=== PATIENT | female | born 1955 | race Caucasian/White ===

== ENCOUNTER 2017-02-21 07:30 | Emergency (ER) | payer BC ==
[2017-02-21 07:41] VITALS: BMI 31.1
--- NOTE | 2017-02-21 07:44 | PDOC ---
Attending Attestation - Resident Resident Name: Salvador Gore - ED Attending Attestation I have performed the following: I have examined & evaluated the patient, The case was reviewed & discussed with the resident, I agree w/resident's findings & plan, Exceptions are as noted - HPI HPI: 02/21/17 08:33 62yo female with sensation that steak was caught in her throat since last night. States inability to tolerate PO intake since. Speaking in full sentences. Pt with inability to tolerate secretions - spitting up during exam. - Physicial Exam PE: 02/21/17 08:34 gen: aaox3, spitting up secretions heart: +s1s2 reg Lungs: cta b/l Abd: soft, nt/nd +bs Ext: no c/c/e, FROM of all extremities - Medical Decision Making 02/21/17 07:44 I, Dr. Lu Olguin, DO, attest that this document has been prepared under my direction and personally reviewed by me in its entirety. I further attest, that it accurately reflects all work, treatment, procedures and medical decision -making performed by me. 02/21/17 08:32 a/p: 62yo female with foreign body sensation to chest -ekg -cxr -glucagon -zofran -ivf hydration -reassess 02/21/17 08:37 re-eval:pt feeling better. tolerating secretions. sensation of foreign body has dissipated. will continue to monitor. 02/21/17 09:23 pt tolerating po challenge 02/21/17 10:38 reviewed ekg from office, new t wave inversions v3-5, will send labs 02/21/17 10:[address] Sloan - if labs normal, ok to follow up as an outpt 02/21/17 10:59 discussed labs with the patient. Stable for d/c to home. mildly elevated bg. will follow up with pMD and with Dr. Sloan for furhte reval. Answered all quesitons. Pt understands all reasons to return to the ED and need for follow up. Discharge Disposition - Diagnosis Foreign body in esophagus Qualifiers: Encounter type: initial encounter Qualified Code(s): T18.108A - Unspecified foreign body in esophagus causing other injury, initial encounter - Discharge Dispostion Disposition: HOME Condition at time of disposition: Stable Last Admission D/C Date: 04/06/08 Admit: No - Referrals Referrals: Edenilson White MD [Primary Care Provider] - Chang Sloan MD [Staff Physician] - - Patient Instructions Printed Discharge Instructions: DI for Esophageal Dysphagia Additional Instructions: Please follow up with your PMD and with the adjunct faculty instructor. Please also call your GI specialist for follow up. Please return to the ED with any further concerns. Heart Score/ECG Review - ECG Intrepretation Comment:: 02/21/17 10:30 ekg: sinus miguelangel at 59, nl acxis, nl interval, t wave ivnersions v3-v5 which are new compared to old
[2017-02-21] MEDS ORDERED: ONDANSETRON 4 MG/2 ML VIAL IVPUSH ONE (07:53)
[2017-02-21] MEDS ORDERED: GlUCAGON HUMAN RECOMBINANT 1 MG/VIAL IVPUSH ONE (07:53)
[2017-02-21] MEDS ORDERED: SODIUM CHLORIDE 0.9% 1000 ML INFUS.BAG IV ONE (07:53)
[2017-02-21] MEDS ORDERED: GlUCAGON HUMAN RECOMBINANT 1 MG/VIAL ONE (07:59)
[2017-02-21] MEDS ORDERED: ONDANSETRON 4 MG/2 ML VIAL ONE (07:59)
--- NOTE | 2017-02-21 08:18 | PDOC ---
History of Present Illness <Farrah Curry - Last Filed: 02/21/17 10:38> - General History Source: Patient Exam Limitations: No Limitations - History of Present Illness Initial Comments: 02/21/17 08:13 Patient is a 62F with a PMH of eosinophilic esophagitis, HTN, HLD, who presents to the ED with complaints of fullness in her chest. The patient states that she was having steak last night at 8pm and after having one bite, felt the food get stuck in her throat. This has happened to her in the past but the symptoms usually last 1 hour. This is secondary to her eosinophilic esophagitis. She has not been able to swallow her saliva or medications. GI dr: Kiko; PCP: Pablo somers Soc: does not smoke, drink, use drugs All: none <Salvador Gore - Last Filed: 02/21/17 11:04> - General Chief Complaint: Foreign Body (FB) Stated Complaint: FOREIGN BODY IN THROAT Time Seen by Provider: 02/21/17 07:37 Past History <Fararh Curry - Last Filed: 02/21/17 10:38> - Past Medical History Anemia: No Asthma: No Cancer: No Cardiac Disorders: No CVA: No COPD: No CHF: No Dementia: No Diabetes: No GI Disorders: Yes (H/O EOSINOPHLIC ESOPHAGITIS, POLYPS, DIVERTICULOSIS) Disorders: No HTN: Yes Hypercholesterolemia: Yes Liver Disease: No Seizures: No Thyroid Disease: No - Surgical History Abdominal Surgery: No Appendectomy: No Cardiac Surgery: No Cholecystectomy: No Lung Surgery: No Neurologic Surgery: No Orthopedic Surgery: No - Psycho/Social/Smoking Cessation Hx Suicidal Ideation: No Smoking Status: No Smoking History: Never smoked Have you smoked in the past 12 months: No Number of Cigarettes Smoked Daily: 0 Information on smoking cessation initiated: No Hx Alcohol Use: No Drug/Substance Use Hx: No Substance Use Type: None Hx Substance Use Treatment: No <Salvador Gore - Last Filed: 02/21/17 11:04> - Past Medical History Allergies/Adverse Reactions: Allergies Allergy/AdvReac Type Severity Reaction Status Date / Time No Known Allergies Allergy Verified 12/12/11 12:32 Home Medications: Ambulatory Orders Atorvastatin Ca [Lipitor] 10 mg PO HS 03/28/16 Ramipril [Altace] 10 mg PO DAILY 03/28/16 Ranitidine [Zantac -] 150 mg PO BID 03/28/16 Mag Carb/Al Hydrox/Alginic AC [Gaviscon Liquid] 355 ml PO PRN #0 oral.susp 03/29 Metoprolol Succinate [Toprol Xl -] 25 mg PO HS 02/21/17 Review of Systems - Review of Systems Able to Perform ROS?: Yes Is the patient limited Surinamese proficient: No Constitutional: No: Chills, Fever Respiratory: Yes: Cough (2/2 eosinophilic esophagitis). No: Shortness of Breath Cardiac (ROS): No: Chest Pain ABD/GI: No: Constipated, Diarrhea, Nausea, Vomiting, Indigestion, Abdominal cramping Integumentary: No: Flushing, Sweating Neurological: No: Numbness, Tingling, Weakness <Salvador Gore - Last Filed: 02/21/17 11:04> *Physical Exam - Vital Signs Last Vital Signs Temp Pulse Resp BP Pulse Ox 98.6 F 68 16 142/76 99 02/21/17 09:42 02/21/17 09:42 02/21/17 09:42 02/21/17 09:42 02/21/17 09:42 <Farrah Curry - Last Filed: 02/21/17 10:38> - Vital Signs Last Vital Signs Temp Pulse Resp BP Pulse Ox 98.2 F 77 16 161/85 100 02/21/17 07:38 02/21/17 07:38 02/21/17 07:38 02/21/17 07:38 02/21/17 07:38 - Physical Exam General Appearance: Yes: Nourished, Appropriately Dressed. No: Apparent Distress HEENT: positive: Normal Voice, Other (No foreign object visualized in posterior pharnyx) Neck: negative: Tender Respiratory/Chest: positive: Lungs Clear, Normal Breath Sounds. negative: Chest Tender, Respiratory Distress, Crackles, Rales, Rhonchi, Stridor Cardiovascular: positive: Regular Rhythm, Regular Rate, S1, S2. negative: Diastolic Murmur, Systolic Murmur Gastrointestinal/Abdominal: positive: Flat, Soft. negative: Tender, Distended, Guarding, Rebound, Tenderness Extremity: positive: Normal Inspection, Normal Range of Motion. negative: Coldness, Swelling, Calf Tenderness Integumentary: positive: Dry, Warm. negative: Clammy Neurologic: positive: Fully Oriented, Alert, Normal Mood/Affect, Motor Strength 5/5 <Salvador Gore - Last Filed: 02/21/17 11:04> Heart Score/ECG Review - ECG Impressions Comment:: 02/21/17 09:45 NSR with T wave inversion in V1-V5. Will compare to previous EKG. <Salvador Gore - Last Filed: 02/21/17 11:04> ED Treatment Course - LABORATORY CBC & Chemistry Diagram: 02/21/17 10:20 02/21/17 10:20 - Medications Given in the ED: ED Medications Discontinued Medications Generic Name Dose Route Start Last Admin Trade Name Rick PRN Reason Stop Dose Admin Glucagon 0.5 mg 02/21/17 07:53 02/21/17 08:20 Glucagon - IVPUSH 02/21/17 07:54 0.5 mg ONCE ONE Administration Ondansetron HCl 4 mg 02/21/17 07:53 02/21/17 08:21 Zofran Injection IVPUSH 02/21/17 07:54 4 mg ONCE ONE Administration Sodium Chloride 1,000 ml 02/21/17 07:53 02/21/17 08:20 Normal Saline - IV 02/21/17 07:54 1,000 ml ONCE ONE Administration <Farrah Curry - Last Filed: 02/21/17 10:38> - LABORATORY CBC & Chemistry Diagram: 02/21/17 10:20 02/21/17 10:20 - RADIOLOGY Radiology Studies Ordered: Category Date Time Status CHEST PA & LAT [RAD] Stat Radiology 02/21/17 07:52 Ordered <Salvador Gore - Last Filed: 02/21/17 11:04> Medical Decision Making - Medical Decision Making 02/21/17 09:43 Dr. Beatty was paged at 8:09am and 9:42am with no response. Dr. White's office was called at 9:38am and old EKG will be faxed over. 02/21/17 10:21 Dr. Carter was called for consult, and will call us back. 02/21/17 10:38 Dr. Sloan called back at 10:36am. <Farrah Curry - Last Filed: 02/21/17 10:38> - Medical Decision Making 02/21/17 08:17 The patient is a 62F with a PMH of eosinphilic esophagitis who presents with a feeling of food being stuck in her esophagus. Also on my differential, although very unlikely and low suspicion, is an atypical presentation of ACS. I have ordered an EKG to rule this out. I have also ordered glucagon to relax the LES with zofran and fluids. Will reassess after medications are given. 02/21/17 09:46 Patient states that she is feeling "100% better". EKG shows t-wave inversions. PCP office called to fax old EKG and will compare. 02/21/17 11:04 My attending has spoken with Dr. Sloan who agrees to follow up with this patient outpatient. Patient agrees to this and is ready for discharge. <Salvador Gore - Last Filed: 02/21/17 11:04> *DC/Admit/Observation/Transfer <Farrah Curry - Last Filed: 02/21/17 10:38> <Salvador Gore - Last Filed: 02/21/17 11:04> Diagnosis at time of Disposition: Esophageal foreign body - Discharge Dispostion Disposition: HOME Condition at time of disposition: Stable - Referrals Referrals: Chang Sloan MD [Staff Physician] - Edenilson White MD [Primary Care Provider] - - Patient Instructions Printed Discharge Instructions: DI for Esophageal Dysphagia Additional Instructions: Please follow up with your PMD and with the body team member. Please also call your GI specialist for follow up. Please return to the ED with any further concerns.
[2017-02-21 09:43] VITALS: BP 142/76; PULSE 68; TEMP 98.6
[2017-02-21 10:32] LABS: BASOPHIL 0.9 % (0-2.0); EOSINOPHIL 2.7 % (0-4.5); MCH 29.7 pg (25.7-33.7); MCHC 34.5 g/dl (32.0-36.0); MEAN CELL VOLUME 86.2 fl (80-96); MEAN PLT VOLUME 9.4 fl (7.5-11.1); NEUTROPHILS 63.9 % (42.8-82.8); PLATELET COUNT 261 K/MM3 (134-434); RDW 12.5 % (11.6-15.6); WHITE BLOOD COUNT 8.4 K/mm3 (4.0-10.0)
[2017-02-21 10:52] LABS: ALBUMIN 4.3 g/dl (3.4-5.0); ANION GAP 11 (8-16); BILIRUBIN,TOTAL 0.6 mg/dL (0.2-1.0); CALCIUM 9.3 mg/dL (8.5-10.1); CO2 27 mmol/L (21-32); CREATININE 0.8 mg/dL (0.55-1.02); GLUCOSE,RANDOM 112 mg/dL (74-106); MAGNESIUM 2.3 mg/dL (1.8-2.4); SGOT/AST 16 U/L (15-37); SGPT/ALT 31 U/L (12-78); TOT PROT 7.4 g/dl (6.4-8.2)
[2017-02-21 10:55] LABS: ALK PHOS 124 U/L (45-117); CPK 80 IU/L (26-192); TROPONIN I < 0.02 ng/ml (0.00-0.05)
--- NOTE | 2017-02-24 17:00 | EKG ---
Test Reason : Blood Pressure : / mmHG Vent. Rate : 059 BPM Atrial Rate : 059 BPM P-R Int : 122 ms QRS Dur : 098 ms QT Int : 390 ms P-R-T Axes : 018 005 019 degrees QTc Int : 386 ms SINUS BRADYCARDIA WITH SINUS ARRHYTHMIA ABNORMAL ECG WHEN COMPARED WITH ECG OF 04-SEP-2010 09:00, T WAVE INVERSION NOW EVIDENT IN ANTEROLATERAL LEADS Confirmed by EBENEZER TRACY MD ([id number]) on 02/24/2017 5:00:09 PM Referred By: Confirmed By:EBENEZER TRACY MD
== END 2017-02-21 11:16 | disposition home or self-care (01) ==
LOC: JER 07:30
PROC: 3E033GC Introduction of Other Therapeutic Substance into Peripheral Vein, Percutaneous Approach (ICD-10-PCS; principal; 2017-02-21)
PROC: 3E0337Z Introduction of Electrolytic and Water Balance Substance into Peripheral Vein, Percutaneous Approach (ICD-10-PCS; 2017-02-21)
DX: T18.108A Unspecified foreign body in esophagus causing other injury, initial encounter (principal)
CPT/HCPCS: 36415; 71020-TC; 80053; 83735; 84484; 85025; 93005; 93010; 99284-25

== ENCOUNTER 2019-06-18 07:06 | Day surgery (SDC) | payer BC ==
[2019-06-17 13:00] VITALS: BMI 31.1
[2019-06-18 07:41] VITALS: TEMP 97.9
[2019-06-18 10:10] VITALS: BP 126/69; PULSE 73
--- NOTE | 2019-06-21 16:11 | PATH ---
Surgical Pathology Report Patient Name: VIDA BAZAN [facility]. Rec. #: [id number] /Age/Gender: 1955 (Age: 64) / F Account: [id number] Location: U-ENDOSCOPY Taken: 06/18/2019 Received: 06/18/2019 Reported: 06/21/2019 Physicians: Oneil Beatty M.D. Specimen(s) Received A: SECOND PORTION AND DUODENUM BULB B: ANTRUM C: GASTRIC BODY POLYP D: MID ESOPHAGUS E: SCHATZKI'S RING F: CECAL POLYPS G: RIGHT COLON POLYP H: SIGMOID COLON POLYPS Clinical History Dysphagia, adenoma surveillance Postoperative diagnosis: Hiatal hernia, gastric polyp, colon polyps, diverticulosis Final Diagnosis A. DUODENUM, SECOND PORTION AND DUODENAL BULB, BIOPSY: DUODENAL MUCOSA WITH SMALL LYMPHOID AGGREGATES. B. STOMACH, ANTRUM, BIOPSY: GASTRIC ANTRAL MUCOSA WITH MILD CHRONIC GASTRITIS AND FOCAL INTESTINAL METAPLASIA. NO DYSPLASIA IDENTIFIED. IMMUNOHISTOCHEMICAL STAIN FOR H. PYLORI IS NEGATIVE. C. GASTRIC BODY, POLYP, BIOPSY: POLYPOID GASTRIC BODY MUCOSA WITH MILD CHRONIC GASTRITIS. IMMUNOHISTOCHEMICAL STAIN FOR H. PYLORI IS NEGATIVE. D. MID ESOPHAGUS, BIOPSY: SQUAMOUS MUCOSA WITH SEVERE BASAL CELL HYPERPLASIA, FOCAL PARAKERATOSIS, AND INCREASED INTRAEPITHELIAL EOSINOPHILS (UP TO 20 EOSINOPHILS/IN ONE HPF). SEE COMMENT. E. SCHATZKI'S RING, BIOPSY: SQUAMOUS MUCOSA WITH SEVERE BASAL CELL HYPERPLASIA, FOCAL PARAKERATOSIS, FOCAL MILD INCREASED INTRAEPITHELIAL EOSINOPHILS (UP TO 6 EOSINOPHILS/IN ONE HPF), AND FOCAL ULCERATION. PAS FUNGAL STAIN IS NEGATIVE. SEE COMMENT. F. CECAL POLYPS, BIOPSY: TUBULAR ADENOMA(S). G. COLON POLYP, BIOPSY: TUBULAR ADENOMA. H. SIGMOID COLON POLYPS, BIOPSY: HYPERPLASTIC POLYP(S). Part D & E, Biopsy shows increased intraepithelial eosinophils with up to 20 eosinophils in one HPF in the mid esophagus and 6 eosinophils in the distal esophagus/Schatzi's ring. Findings are non-specific. Although findings in part D is compatible with eosinophilic esophagitis, differential diagnoses include severe gastrointestinal reflux disease food allergy, drug hypersensitivity, hypereosinophilic syndrome, and connective tissue disease, among others. Suggest clinical and endoscopic correlation. Electronically Signed Joellen Quevedo M.D. Gross Description A. Received in formalin, labeled "second portion and bulb of duodenum biopsy" are 3 anderson, irregular portions of soft tissue ranging from 0.4-0.5 cm. in greatest dimension. The specimens are submitted in toto in one cassette. B. Received in formalin, labeled "antrum biopsy" are 2 anderson, irregular portions of soft tissue measuring 0.2 and 0.3 cm. in greatest dimension. The specimens are submitted in toto in one cassette. C. Received in formalin, labeled "gastric body polyp" are 2 anderson, irregular portions of soft tissue averaging 0.2 cm. in greatest dimension. The specimens are submitted in toto in one cassette. D. Received in formalin, labeled "mid esophagus biopsy" are 4 anderson, irregular portions of soft tissue ranging from 0.3-0.5 cm. in greatest dimension. The specimens are submitted in toto in one cassette. E. Received in formalin, labeled "Schatzki's ring biopsy" are 2 anderson, irregular portions of soft tissue measuring 0.5 and 0.7 cm. in greatest dimension. The specimens are submitted in toto in one cassette. F. Received in formalin, labeled "cecal polyps biopsy" are 2 anderson, irregular portions of soft tissue averaging 0.2 cm. in greatest dimension. The specimens are submitted in toto in one cassette. G. Received in formalin, labeled "right colon polyp biopsy" is a anderson, irregular portion of soft tissue measuring 0.4 cm. in greatest dimension. The specimen is submitted in toto in one cassette. H. Received in formalin, labeled "sigmoid colon polyp biopsy" are 3 anderson, irregular portions of soft tissue ranging from 0.2-0.3 cm. in greatest dimension. The specimens are submitted in toto in one cassette. 06/18/2019 [facility]06/18/2019
== END 2019-06-18 10:25 | disposition home or self-care (01) ==
LOC: JASU-ENDO 07:06
PROVIDERS: ATTEND Internal Medicine Gastroenterology
PROC: 0DBN8ZX Excision of Sigmoid Colon, Via Natural or Artificial Opening Endoscopic, Diagnostic (ICD-10-PCS; 2019-06-18)
PROC: 0DBH8ZX Excision of Cecum, Via Natural or Artificial Opening Endoscopic, Diagnostic (ICD-10-PCS; 2019-06-18)
PROC: 0DB98ZX Excision of Duodenum, Via Natural or Artificial Opening Endoscopic, Diagnostic (ICD-10-PCS; 2019-06-18)
PROC: 0DB68ZX Excision of Stomach, Via Natural or Artificial Opening Endoscopic, Diagnostic (ICD-10-PCS; 2019-06-18)
PROC: 0DB28ZX Excision of Middle Esophagus, Via Natural or Artificial Opening Endoscopic, Diagnostic (ICD-10-PCS; 2019-06-18)
PROC: 0DB48ZX Excision of Esophagogastric Junction, Via Natural or Artificial Opening Endoscopic, Diagnostic (ICD-10-PCS; 2019-06-18)
PROC: 0DBK8ZX Excision of Ascending Colon, Via Natural or Artificial Opening Endoscopic, Diagnostic (ICD-10-PCS; principal; 2019-06-18 08:00)
DX: Z12.11 Encounter for screening for malignant neoplasm of colon (principal); D12.2 Benign neoplasm of ascending colon; D12.0 Benign neoplasm of cecum; D12.5 Benign neoplasm of sigmoid colon; K57.30 Diverticulosis of large intestine without perforation or abscess without bleeding; K63.89 Other specified diseases of intestine; K22.2 Esophageal obstruction; K44.9 Diaphragmatic hernia without obstruction or gangrene; K29.50 Unspecified chronic gastritis without bleeding; K29.80 Duodenitis without bleeding; Z86.010 Personal history of colon polyps; Z80.0 Family history of malignant neoplasm of digestive organs
CPT/HCPCS: 88305-TC; 88312-TC; 88342-TC